=== PATIENT | male | born 1965 | race Caucasian/White ===

== ENCOUNTER → 2016-10-15 | Outpatient (CLI) | payer OTHER ==
[~2016-10-15] MED LIST: GADAVIST IV PRN; OPTIRAY 320 IV PRN
--- NOTE | 2016-10-15 14:06 | DIAGNOSTIC IMAGING REPORT ---
ABD/PELVIS COMBO CLINICAL HISTORY: 51 years-old Male presenting with left renal mass, diabetes. TECHNIQUE: Multidetector CT of the abdomen and pelvis was performed before and after the administration of intravenous contrast. IV contrast: 119 mL of Optiray 320. A dose lowering technique was used consistent with the principles of ALARA (as low as reasonably achievable). COMPARISON: 08/24/2016. CT DOSE (mGy.cm): The estimated cumulative dose is 6204.21 mGy.cm. FINDINGS: Image quality is degraded by body habitus. Resource Management Planner topogram: Unremarkable. Lung bases: 7 mm solid pulmonary nodule at the right lung base (series 5 image 73) disease Minimal subpleural nodular opacity in the anterior aspect of the right middle lobe (series 5 image 25). Additional similar-appearing nodular opacities noted in the right lower lobe likely with associated calcification. This is in somewhat of a tree-in-bud distribution although more irregular. The left lung bases clear. Normal heart size. No pericardial or pleural effusion. Liver: Normal morphology. Hepatic steatosis. No liver lesion. Patent hepatic vasculature. Biliary: No intrahepatic or extrahepatic biliary ductal dilatation. Normal gallbladder. Pancreas: Moderate to severe parenchymal atrophy. Spleen: Normal. Adrenal glands: Normal. Kidneys and ureters: No nephrolithiasis. Mildly exophytic 2.9 cm lesion at the lower pole of the right kidney, which is dense on precontrast imaging measuring 76 Hounsfield units. This does not demonstrate convincing evidence of enhancement on portal venous or delayed phases. Additional 6.6 cm more hypodense lesion at the lower pole of the left kidney, which is also mildly increased in density on precontrast imaging above simple fluid. No demonstrable enhancement. These are suggestive of hemorrhagic or proteinaceous cysts. Normal excretion bilaterally ureters normal. No filling defect within the collecting system. Bladder: Normal. Pelvic organs: Prostate and seminal vesicles normal. Bowel: Mild stool burden throughout normal caliber colon. No bowel obstruction. Peritoneal cavity: No free fluid or intraperitoneal gas. Hepatic steatosis. Vasculature: Aorta and IVC patent and normal in caliber. Lymph nodes: Enlarged portacaval lymph node measuring 16 x 27 mm, unchanged from prior exam. Abdominal wall: Extensive collateral veins in the subcutaneous tissue of the proximal thighs anteriorly, which are dilated and appear to drain into the common femoral veins. This could suggest more distal venous obstruction. Musculoskeletal: Degenerative changes of the spine. Degenerative changes of the sacroiliac joints. IMPRESSION: 1. Bilateral dense renal lesions without demonstrable enhancement to suggest a solid neoplasm. However, given the patient's body habitus, this is suboptimally depicted. Contrast-enhanced MR may better demonstrate this lesion. 2. Pathologically enlarged portacaval lymph node as on prior exam. This is nonspecific in the absence of known malignancy. Attention on follow-up. 3. Subcentimeter solid pulmonary nodule at the right lung base. This is nonspecific. This may relate to additional irregular nodularity noted at the right lung base, which may be postinfectious or postinflammatory. Follow-up per Fleischner Society 2017 recommendations below. 4. Extensive collateral veins in the subcutaneous tissues of the proximal thighs could suggest more distal venous obstruction. Consideration for bilateral lower extremity venous Doppler as clinically warranted. Please refer to below summary of Fleischner Society 2017 recommendations for follow-up of incidental CT nodules (H Srini et al. Guidelines for management of incidental pulmonary nodules detected on CT images: From the Fleischner Society 2017. Radiology 2017; 284: 228-243.) SOLID NODULES Single nodule; size <6 mm * Low risk patients: No routine follow-up * High risk patients: Optional CT at 12 months Single nodule; size 6-8 mm * Low risk patients: CT at 6-12 months, then consider CT at 18-24 months * High risk patients: CT at 6-12 months, then at 18-24 months Single nodule; size >8 mm * Either low or high risk patients: Considered CT at 3 months, PET/CT, or tissue sampling Multiple nodules; size <6 mm * Low risk patients: No routine follow up * High risk patients: Optional CT at 12 months Multiple nodules; size 6-8 mm * Low risk patients: CT at 3-6 months, then consider CT at 18-24 months * High risk patients: CT at 3-6 months, then at 18-24 months Multiple nodules; size >8 mm * Low risk patients: CT at 3-6 months, then consider at 18-24 months * High risk patients: CT at 3-6 months, then at 18-24 months Note: These guidelines apply to incidental nodules. These guidelines did not apply to patients younger than 35 years, immunocompromised patients, or patients with cancer. * Low risk patients: Minimal or absent history of smoking and/or other known risk factors * High risk patients: History of smoking, exposure to other carcinogens, emphysema, fibrosis, upper lobe location, family history of lung cancer, etc. * If a nodule up to 8 mm is partly solid or is ground glass further follow-up is required after 24 months to exclude possible slow growing adenocarcinoma SUBSOLID NODULES Single ground-glass nodule * Nodule size < 6 mm: No routine follow-up * Nodule size > or = 6 mm: CT at 6-12 months to confirm persistence, then CT every 2 years until 5 years Single part-solid nodule * Nodule size < 6 mm: No routine follow-up * Nodules size > or = 6 mm: CT at 3-6 months to confirm persistence. If unchanged and solid component remains < 6 mm, annual CT should be performed for 5 years Multiple nodules * Nodule size < 6 mm: CT at 3-6 months. If stable, consider CT at 2 and 4 years. * Nodules size > or = 6 mm: CT at 3-6 months. Subsequent management based on the most suspicious nodule(s) Electronically signed by: Finesse Dacosta M.D. 10/15/2016 2:05 PM Dictated Date/Time: 10/15/2016 1:45 PM
== END | disposition home or self-care (01) ==
LOC: C.CTS 08:00 → EDSTATUS 11-22 07:30
PROVIDERS: ATTEND Urology
DX: N28.89 Other specified disorders of kidney and ureter (principal)

== ENCOUNTER → 2016-10-31 | Outpatient (CLI) | payer OTHER ==
--- NOTE | 2016-10-31 12:30 | DIAGNOSTIC IMAGING REPORT ---
ABDOMINAL MRI WITH AND WITHOUT INTRAVENOUS CONTRAST HISTORY: Follow-up LT RENAL MASS TECHNIQUE: Multiplanar multisequence MRI of the abdomen was performed both before and after the intravenous administration of contrast to evaluate the kidneys. COMPARISON STUDY: Abdomen and pelvis CT 10/15/2016 and 08/24/2016. FINDINGS: There is extensive motion artifact throughout the examination. This results in difficult evaluation of the lower pole lesion within the left kidney. However, this lesion is T2 hyperintense, T1 hypointense and does not appear to demonstrate enhancement. Therefore, this is consistent with a cyst. This lesion measures approximately 6.7 x 5.5 cm. The 3.3 x 2.9 cm lesion within the lower pole of the right kidney is predominantly hypointense on both T2 and T1 sequences. This demonstrates small foci of increased T1 and T2 signal internally. Evaluation for contrast enhancement is essentially nondiagnostic due to the significant motion artifact on the sequences. The subtraction images raise the possibility of a small patchy areas of enhancement internally within this lesion. However, this could be due to the artifact. Therefore, a renal neoplasm cannot be excluded on the basis of the study. Stable mildly enlarged 2.8 x 1.6 cm portacaval lymph node. No definite abnormality within the liver, spleen, gallbladder, or pancreas. Normal adrenal glands. IMPRESSION: 1. The 6.7 x 5.5 cm lesion within the lower pole of the left kidney is consistent with a cyst. 2. The 3.3 x 2.9 cm lesion within the lower pole of the right kidney is essentially nondiagnostic due to the significant motion artifact. However, a renal neoplasm cannot be excluded on the basis of this study as described above as there is the possibility of internal enhancement. Of note, this lesion is not consistent with a simple cyst. 3. Stable mildly enlarged portacaval lymph node. Electronically signed by: Rl Willoughby M.D. 10/31/2016 12:29 PM Dictated Date/Time: 10/31/2016 12:15 PM
== END | disposition home or self-care (01) ==
LOC: C.MRIBC 08:49
PROVIDERS: ATTEND Urology
DX: N28.89 Other specified disorders of kidney and ureter (principal)

== ENCOUNTER → 2017-09-17 | Outpatient (CLI) | payer OTHER ==
[~2017-09-17] MED LIST changes: +AMOX1TAB43 PO; +ASPI-435 PO; +Atenolol PO; +CYCL10TA6 PO; +FURO40TA3 PO; -GADAVIST IV PRN; +GLC500 PO; +GLIM4TAB PO; +HYT/2 PO; +INSU1.2I SQ; +IRBE1TAB50 PO; +LCTX PO; +LPT10 PO; +Labs; +METO5TAB25 PO; +METO5TAB3 PO; +MORP-158 PO; +MRLP17X PO; +NVLGI/PEN SC; +NVLGI/PEN SQ; +OMEP20TA PO; +ONDA8TAB62 SL; -OPTIRAY 320 IV PRN; +Oxycodone PO; +PRAM1TAB52 PO; +WARF6TAB PO
--- NOTE | 2017-09-17 09:49 | DIAGNOSTIC IMAGING REPORT ---
CHEST 2 VIEWS ROUTINE CLINICAL HISTORY: Pleural effusion. COMPARISON STUDY: Chest CT August 25, 2017 and chest radiograph September 12, 2017. FINDINGS: There is no evidence for pulmonary edema. Cardiomediastinal silhouette is stable. Linear left lung opacity favors atelectasis or scarring. Left hemithorax following loss is unchanged. A small left pleural effusion is similar to exam of September 02, 2017. IMPRESSION: 1. No pneumothorax. 2. No significant change in a small left pleural effusion since previous exam. 3. Linear left lung opacities which suggest scarring or atelectasis. Electronically signed by: Harshad Childress M.D. 09/17/2017 9:48 AM Dictated Date/Time: 09/17/2017 9:44 AM
== END | disposition home or self-care (01) ==
LOC: C.RAD1850 09:25
PROVIDERS: ATTEND Surgery
DX: J90 Pleural effusion, not elsewhere classified (principal)

== ENCOUNTER → 2017-10-03 | Outpatient (CLI) | payer OTHER ==
--- NOTE | 2017-10-03 12:26 | DIAGNOSTIC IMAGING REPORT ---
CHEST 2 VIEWS ROUTINE HISTORY: J86.9 [id number] COMPARISON: Chest 09/17/2017. FINDINGS: No pneumothorax. The heart is stable in size. The right lung is clear. No change in the left mid to lower lung zone linear opacities. Trace left pleural effusion has slightly improved. No evidence for pulmonary edema. IMPRESSION: 1. Slight improvement in the trace left pleural effusion. 2. No pneumothorax. 3. No change in the left mid to lower lung zone linear opacities. This suggests scarring or atelectasis. Electronically signed by: Rl Willoughby M.D. 10/03/2017 12:25 PM Dictated Date/Time: 10/03/2017 12:23 PM
== END | disposition home or self-care (01) ==
LOC: C.RAD1850 11:55
PROVIDERS: ATTEND Physician Assistant
DX: J86.9 Pyothorax without fistula (principal)